=== PATIENT | male | born 1965 | race Two or more races ===

== ENCOUNTER 2022-12-29 05:16 | Day surgery (SDC) | payer OTHER ==
[2022-12-24 15:29] VITALS: BMI 22.6
[~2022-12-29 05:16] MED LIST: ceFAZolin SODIUM 1 GM VIAL IVPB ONE
[2022-12-29] MEDS ORDERED: MIDAZOLAM HCL 2 MG/2 ML SINGLE DOSE VIAL ONE (07:32)
[2022-12-29] MEDS ORDERED: SUCCINYLCHOLINE CHLORIDE 200 MG/10 ML SYRINGE ONE (07:32)
[2022-12-29] MEDS ORDERED: PROPOFOL 40 ML ONE (07:32)
[2022-12-29] MEDS ORDERED: GENTAMICIN SO4 80 MG/2 ML VIAL IVPB ONE (07:45)
[2022-12-29] MEDS ORDERED: ceFAZolin SODIUM 1 GM VIAL IVPB ONE (07:45)
[2022-12-29] MEDS ORDERED: GENTAMICIN SO4 80 MG/2 ML VIAL ONE (07:46)
[2022-12-29] MEDS ORDERED: oxyCODONE HCL 5 MG TABLET PO PRN ×2 (08:28→08:39)
[2022-12-29] MEDS ORDERED: ELECTROLYTE-148 SOLN 1,000 ML IV SCH (08:30)
[2022-12-29] MEDS ORDERED: PROMETHAZINE HCL 25 MG/1 ML VIAL IVPB PRN (08:39)
[2022-12-29] MEDS ORDERED: ONDANSETRON 4 MG/2 ML VIAL IVPUSH PRN (08:39)
[2022-12-29] MEDS ORDERED: LACTATED RINGERS SOLUTION 1,000 ML IV SCH (08:45)
[2022-12-29 10:28] VITALS: RESP 20; TEMP 97.3
[2022-12-29 10:31] VITALS: BP 114/65; PULSE 62
[2023-01-03 12:06] LABS: CA OXALATE MONOHYDR. 70 % (.); SIZE 3x3 mm (.); WEIGHT 16 mg (.)
== END 2022-12-29 09:43 | disposition home or self-care (01) ==
LOC: JASU-SURG 05:16
PROVIDERS: ATTEND Urology
PROC: 0T778DZ Dilation of Left Ureter with Intraluminal Device, Via Natural or Artificial Opening Endoscopic (ICD-10-PCS; 2022-12-29)
PROC: 0TC78ZZ Extirpation of Matter from Left Ureter, Via Natural or Artificial Opening Endoscopic (ICD-10-PCS; principal; 2022-12-29 07:36)
DX: N20.1 Calculus of ureter (principal); N13.5 Crossing vessel and stricture of ureter without hydronephrosis
CPT/HCPCS: 36415; 76000-TC-FY; 82360; 88300-TC; 94760; C1758; C1769; C2617